=== PATIENT | male | born 1960 | race Caucasian/White ===

== ENCOUNTER 2021-08-03 16:03 | Emergency (ER) | payer SELFPAY ==
[~2021-08-03] VITALS: Ht 182.9 cm; Wt 113.0 kg
[2021-08-03 17:01] LABS: HEMATOCRIT 43.4 % (39.0-50.0); HEMOGLOBIN 14.1 g/dl (14.0-18.0); IMMATURE GRANULOCYTES 0.1 % (0.0-5.0); MEAN CELL VOLUME 92.3 fL CALC (80.0-100.0); MEAN CORPUSCULAR HGB CONC 32.5 g/dL CAL (32.0-36.0); NEUT# 5.32 thou/uL (1.82-7.42); RED BLOOD COUNT 4.7 mill/uL (4.70-6.10); RED CELL DISTRI WIDTH 13.1 % (11.5-15.5)
[2021-08-03 17:12] LABS: ALBUMIN 4.1 g/dL (3.2-5.0); ALKALINE PHOSPHATASE 127 u/l (38-126); AMYLASE 115 u/l (30-110); ANION GAP 13 (6-22 (CALC)); BILIRUBIN, TOTAL 0.6 mg/dL (0.0-1.4); BUN 18 mg/dL (9-20); BUN/CREATININE RATIO 16 (12-20 (CALC)); CARBON DIOXIDE 25 mmol/l (22-30); CHLORIDE 106 mmol/l (95-108); CREATININE 1.1 mg/dL (0.7-1.3); GFR > 60 ML/MIN (>=60 (CALC)); GFR FOR AFR.AMER. > 60 ML/MIN (>=60 (CALC)); LIPASE 770 u/l (23-300); POTASSIUM 4.3 mmol/l (3.5-5.1); SGOT/AST 33 u/l (17-59); SODIUM 141 mmol/l (137-146)
[2021-08-03 17:24] LABS: MYOGLOBIN 110 ng/mL (0 - 121)
[2021-08-03 19:19] LABS: URINE BILIRUBIN - DIPSTICK NEGATIVE (NEGATIVE); URINE BLOOD DIPSTICK NEGATIVE (NEGATIVE); URINE COLOR YELLOW; URINE GLUCOSE - DIPSTICK 500 mg/dL (NEGATIVE); URINE KETONE NEGATIVE (NEGATIVE); URINE LEUK ESTERASE NEGATIVE (NEGATIVE); URINE PH 5.5 (4.5-8.0); URINE PROTEIN - DIPSTICK 100 mg/dL (NEG-TRACE); URINE SPECIFIC GRAVITY >=1.030; URINE UROBILINOGEN - DIPSTICK 0.2 E.U./dL (0.2)
[2021-08-03 19:20] LABS: URINE NITRITE - DIPSTICK NEGATIVE (Negative)
[2021-08-03 19:25] LABS: URINE RBC 0-2 RBC/hpf (0-5)
[2021-08-03 19:26] LABS: URINE SQUAMOUS EPITHELIAL CELL MODERATE EPI/hpf (0-FEW)
[2021-08-03] MEDS ORDERED: CLONIDINE0.1 MG PO (21:20)
[2021-08-03] MEDS ORDERED: METOPROL TAR25 MG PO (21:20)
[2021-08-03] MEDS ORDERED: ZESTRIL10 M1 PO (21:21)
[2021-08-03] MEDS ORDERED: AFEDITAB30 MG PO (21:21)
[2021-08-03] MEDS ORDERED: METFORMIN HCL1000 MG PO (21:22)
[2021-08-03 21:23] VITALS: BP 126/73
== END 2021-08-03 21:23 | disposition short-term general hospital (02) | DRG 194 ==
LOC: ED 16:03 → ED-I 20:30 → ED 21:23
PROVIDERS: Emergency Medicine
DX: J18.9 Pneumonia, unspecified organism (principal); J91.8 Pleural effusion in other conditions classified elsewhere; R74.8 Abnormal levels of other serum enzymes; R09.02 Hypoxemia; R16.0 Hepatomegaly, not elsewhere classified; I10 Essential (primary) hypertension; Z20.822 Contact with and (suspected) exposure to COVID-19
CPT/HCPCS: Q9967

== ENCOUNTER 2021-08-17 08:20 | Inpatient (IN) | payer OTHER ==
[~2021-08-17] VITALS: Ht 182.9 cm; Wt 96.0 kg
[~2021-08-17 08:20] MED LIST: AFEDITAB30 MG PO; CLONIDINE0.1 MG PO; METFORMIN HCL1000 MG PO; METOPROL TAR25 MG PO; ZESTRIL10 M1 PO
--- NOTE | 2021-08-17 08:23 | NUR ---
PT TO ROOM 10 VIA WC ABLE TO STAND AND TRANSFER SELF WITHOUT ASSIST.
[2021-08-17 09:11] LABS: HEMATOCRIT 41.2 % (39.0-50.0); HEMOGLOBIN 13.2 g/dl (14.0-18.0); MEAN CELL VOLUME 93.6 fL CALC (80.0-100.0); NEUT# 2.69 thou/uL (1.82-7.42); RED BLOOD COUNT 4.4 mill/uL (4.70-6.10); RED CELL DISTRI WIDTH 13.3 % (11.5-15.5)
[2021-08-17 09:19] LABS: D-DIMER 1.11 mg/L (0.19-0.60)
[2021-08-17 09:20] LABS: ALKALINE PHOSPHATASE 144 u/l (38-126); ANION GAP 14 (6-22 (CALC)); BILIRUBIN, TOTAL 0.6 mg/dL (0.0-1.4); BUN 24 mg/dL (9-20); BUN/CREATININE RATIO 17 (12-20 (CALC)); CARBON DIOXIDE 22 mmol/l (22-30); CHLORIDE 104 mmol/l (95-108); CREATININE 1.4 mg/dL (0.7-1.3); GFR 52 ML/MIN (>=60 (CALC)); GFR FOR AFR.AMER. > 60 ML/MIN (>=60 (CALC)); LIPASE 446 u/l (23-300); POTASSIUM 4.8 mmol/l (3.5-5.1); SODIUM 135 mmol/l (137-146); TOTAL PROTEIN 7.7 g/dL (6.3-8.2)
[2021-08-17 09:23] LABS: ACT PARTIAL THROMBO TIME 25.9 SECONDS (20.0-32.5); INTERNATIONAL NORMALIZED RATIO 1.1 RATIO (0.7-1.3)
[2021-08-17 09:28] LABS: SGOT/AST 68 u/l (17-59)
--- NOTE | 2021-08-17 11:14 | NUR ---
MD AT BEDSIDE TO DISCUSS RESULTS AND POC
--- NOTE | 2021-08-17 11:22 | NUR ---
DR SALINAS AT BEDSIDE TO DISCUSS POC
--- NOTE | 2021-08-17 12:37 | NUR ---
REPORT CALLED TO DONAVON LINARES.
--- NOTE | 2021-08-17 12:55 | NUR ---
TO MED SURG VIA WHEELCHAIR, TELE MONITOR IN PLACE.
--- NOTE | 2021-08-17 12:56 | NUR ---
PT ARRIVED TO [facility] ROOM 262 VIA PORTABLE. PT IS A/O X3. ASSESSMENT AND VITALS COMPLETED. RESPIRAITONS ARE EVEN AND UNLABORED, 98% ON 2L NC. NONPRODUCTIVE COUGH NOTED. LUNG SOUNDS ARE CLEAR. HEART RHYTHM NORMAL WITH TELE IN PLACE ([id number]), SR PER ER MONITORING. LIFE VEST NOTED. BOWEL SOUNDS ACTIVE, LBM 08/17/21. PULSE STRONG. #20G RAC FLUSHED, SITE APPEARS HEALTHY AND PATENT. SCAB AREA NOTED TO LEFT DUCKWORTH, PT STATES FROM PREVIOUS SURGERY.PT STATES HE WAS PREVIOUS SENT TO [facility] FOR LIFE VEST, PNM, AND CHF. PT INFORMS WRITTER HE HAS DC ABOUT A WEEK AGO. PT DENIES OF ANY PAINS OR DISCOMFORTS. NKDA NOTED, ALLERGY BAND AND FALL RISK BAND APPLIED. PT ORIENTED TO ROOM AND CALL SYSTEM. ALL SAFTEY PRECAUTIONS ARE IN PLACE WITH CALL LIGHT IN REACH.AIR/CONTACT PRECAUTIONS. WILL CONTINUE TO MONITOR
[2021-08-17 13:18] VITALS: BP 101/71
[2021-08-17 14:00] VITALS: BP 109/79
--- NOTE | 2021-08-17 14:00 | NUR ---
ROOM SERVICE CLERK INFORMED OF 2 BEAT OF VTACH. PT RESTING IN SEMI FOWLERS POSITION TALKING ON PHONE. VITALS OBTAINED. BP 109/79, HR 78, O2 98% ON 2L NC. PT DENIES OF ANY DISTRESSES. DR SALINAS INFORMED.
--- NOTE | 2021-08-17 16:00 | NUR ---
PT RESTNG IN SEMI FOWLERS POSITION. RESPIRATIONS ARE EVEN AND UNLABORED ON 2L NC. TELE MONITORING IN PLACE WITH LIFE VEST. #20G RAC REMAINS IN PLACE. PT DENIES OF ANY PAINS OR DISCOMFORTS AT THIS TIME.ALL SAFTEY PRECAUTIONS ARE IN PLACE WITH CALL LIGHT IN REACH. AIR/CONTACT PRECAUTIONS. WILL CONTINUE TO MONITOR.
[2021-08-17 19:00] VITALS: BP 117/66
--- NOTE | 2021-08-17 22:34 | NUR ---
PHYSICAL ASSESMENT COMPLETE. PT CURRENTLY DENIES PAIN BUT STATES HE HAS DIFICULTY BREATHING. ALBUTEROL REQUESED FROM THE PHYSICIAN. SCHEDULED MEDICATIONS AND PRN MEDICATION ADMINISTERED, SEE E-MAR. PT DENIES ANY NEEDS AT THIS TIME. PLAN OF CARE REVIEWED, PT DENIES QUESTIONS, VERBALIZES UNDERSTANDING. ITEMS WITHIN REACH, BED LOCKED IN LOW POSITION W/ BEDRAILS UP X2. CALL KUMAR WITHIN REACH, AGREES TO CALL PRN.
[2021-08-18] VITALS: BP 115/75
--- NOTE | 2021-08-18 | NUR ---
PT LAYING IN BED WITH EYES CLOSED, APPEARS TO BE SLEEPING, APPEARS COMFORTABLE AND IN NO DISTRESS. RESPIRATIONS REGULAR AND UNLABORED. ITEMS REMAIN WITHIN REACH, CALL KUMAR REMAINS WITHIN REACH. BED REMAINS LOCKED AND IN LOW POSITION WITH BEDRAILS UP X2. WILL CONTINUE TO MONITOR.
[2021-08-18 04:00] VITALS: BP 127/86
--- NOTE | 2021-08-18 04:08 | NUR ---
PT RESTING IN BED, NO SIGNS OF DISTRESS NOTED, RESP EVEN AND UNLABORED. PT VOICES NO NEEDS OR COMPLAINTS AT THIS TIME. CALL LIGHT IN REACH, CONTINUE TO MONITOR.
[2021-08-18 05:31] LABS: HEMATOCRIT 43.9 % (39.0-50.0); HEMOGLOBIN 13.8 g/dl (14.0-18.0); IMMATURE GRANULOCYTES 0.2 % (0.0-5.0); MEAN CELL VOLUME 93.8 fL CALC (80.0-100.0); MEAN CORPUSCULAR HGB 29.5 pG CALC (26.0-32.0); MEAN CORPUSCULAR HGB CONC 31.4 g/dL CAL (32.0-36.0); NEUT# 2.27 thou/uL (1.82-7.42); RED BLOOD COUNT 4.68 mill/uL (4.70-6.10); RED CELL DISTRI WIDTH 13.3 % (11.5-15.5)
[2021-08-18 06:04] LABS: ALBUMIN 3.7 g/dL (3.2-5.0); ALKALINE PHOSPHATASE 145 u/l (38-126); ANION GAP 13 (6-22 (CALC)); BILIRUBIN, TOTAL 0.4 mg/dL (0.0-1.4); BUN 26 mg/dL (9-20); BUN/CREATININE RATIO 19 (12-20 (CALC)); C-REACTIVE PROTEIN 0.7 mg/dL (0-0.9); CARBON DIOXIDE 25 mmol/l (22-30); CHLORIDE 106 mmol/l (95-108); CREATININE 1.3 mg/dL (0.7-1.3); GFR 56 ML/MIN (>=60 (CALC)); GFR FOR AFR.AMER. > 60 ML/MIN (>=60 (CALC)); POTASSIUM 4.4 mmol/l (3.5-5.1); SGOT/AST 64 u/l (17-59); SODIUM 140 mmol/l (137-146); TOTAL PROTEIN 7.1 g/dL (6.3-8.2)
[2021-08-18 07:38] VITALS: BP 138/95
--- NOTE | 2021-08-18 08:00 | NUR ---
SHIFT CHANGE REPORT, PT AWAKE ALERT AND ORIENTED RESTING IN BED IN SEMI-FOWLERS POSITION. O2 @ 2L VIA NC IN PLACE, TELE MONITOR IN PLACE, EXTERNAL DEFIBRILATOR IN PLACE, ALL NEEDS ADDRESSED, CALL KUMAR IN REACH AND BED LOCKED IN LOWEST POSITION.
[2021-08-18 10:45] VITALS: BP 123/84
--- NOTE | 2021-08-18 11:58 | NUR ---
RESTING IN BED, DRY COUGH SUBSIDING, INFORMED OF NEW ORDERS AND STATED UNDERSTANDING.
[2021-08-18] MEDS ORDERED: ZESTRIL5 M1 PO (12:58)
[2021-08-18] MEDS ORDERED: CARVEDILOL25 MG PO (12:58)
[2021-08-18] MEDS ORDERED: LASIX20 MG PO (12:58)
[2021-08-18] MEDS ORDERED: HUMULIN 70/30 SC (13:00)
[2021-08-18 15:00] VITALS: BP 127/77
[2021-08-18 19:00] VITALS: BP 134/67
--- NOTE | 2021-08-18 19:35 | NUR ---
PHYSICAL ASSESMENT COMPLETE. PT CURRENTLY DENIES PAIN OR DISCOMFORT. SCHEDULED MEDICATIONS AND PRN MEDICATION ADMINISTERED, SEE E-MAR. PT DENIES ANY NEEDS AT THIS TIME. PLAN OF CARE REVIEWED, PT DENIES QUESTIONS, VERBALIZES UNDERSTANDING. ITEMS WITHIN REACH, BED LOCKED IN LOW POSITION W/ BEDRAILS UP X2. CALL KUMAR WITHIN REACH, AGREES TO CALL PRN.
[2021-08-19] VITALS: BP 143/88
[2021-08-19 04:00] VITALS: BP 140/91
[2021-08-19 05:43] LABS: HEMOGLOBIN 13.5 g/dl (14.0-18.0); MEAN CELL VOLUME 90.9 fL CALC (80.0-100.0); MEAN CORPUSCULAR HGB 29.2 pG CALC (26.0-32.0); MEAN CORPUSCULAR HGB CONC 32.1 g/dL CAL (32.0-36.0); RED BLOOD COUNT 4.62 mill/uL (4.70-6.10); RED CELL DISTRI WIDTH 13.3 % (11.5-15.5)
[2021-08-19 06:06] LABS: ALBUMIN 3.2 g/dL (3.2-5.0); ALKALINE PHOSPHATASE 139 u/l (38-126); ANION GAP 11 (6-22 (CALC)); BILIRUBIN, TOTAL 0.5 mg/dL (0.0-1.4); BUN 27 mg/dL (9-20); BUN/CREATININE RATIO 22 (12-20 (CALC)); C-REACTIVE PROTEIN 0.7 mg/dL (0-0.9); CARBON DIOXIDE 24 mmol/l (22-30); CHLORIDE 107 mmol/l (95-108); CREATININE 1.2 mg/dL (0.7-1.3); GFR > 60 ML/MIN (>=60 (CALC)); GFR FOR AFR.AMER. > 60 ML/MIN (>=60 (CALC)); MAGNESIUM 1.8 mg/dL (1.6-2.3); POTASSIUM 4.6 mmol/l (3.5-5.1); SGOT/AST 30 u/l (17-59); SODIUM 138 mmol/l (137-146); TOTAL PROTEIN 6.4 g/dL (6.3-8.2)
--- NOTE | 2021-08-19 06:50 | NUR ---
MONITER TECH CALLED AND REPORTED A 10 BEAT RUN OF V-TACH. PT WAS ASYMTOMTIC. VITALS CHECKED AND WITHIN NORMAL LIMITS. WILL CONTINUE TO MONITOR.
--- NOTE | 2021-08-19 07:27 | NUR ---
PT SITTING IN BED. A&O X3. NO DISTRESS NOTED. O2 VIA NC @2L IN PLACE. CLEAR/DIMINISHED BREATH SOUNDS UPON AUSCULTATION. ACTIVE BOWEL SOUNDS X4 QUADRANTS. #20GRAC HEALTHY AND PATENT. FERMENTATION SCIENTIST IN PLACE. LIFE VEST IN PLACE. ROUTE SALES MANAGER COUGH NOTED. PT COVERED WITH INSULIN PER SLIDING SCALE. PT ENCOURAGED TO GET OOB INTO CHAIR; PT AGREEABLE TO PLAN. ASSESSMENT COMPLETED. DISCUSSED POC. ISOLATION PRECAUTIONS IN PLACE PT EDUCATED ON THESE. CALL LIGHT WITHIN REACH.
[2021-08-19 08:00] VITALS: BP 139/96
--- NOTE | 2021-08-19 10:00 | NUR ---
new iv initiated x2 attempts. #20G LFA. HEALTHY AND PATENT WITH GOOD BLOOD RETURN. AZITHROMYCIN REINITIATED. #20G RAC REMOVED; INTACT UPON REMOVAL. CALL LIGHT LANGHTIN GERA.
[2021-08-19 11:10] VITALS: BP 124/86
--- NOTE | 2021-08-19 11:35 | NUR ---
PT SITTING UP IN THE CHAIR. O2 REMAINS UNCHANGED. TOLERATING WELL. NO OTHER NEEDS REPORTED AT THIS TIME. CALL LIGHT WITHIN REACH.
--- NOTE | 2021-08-19 11:42 | NUR ---
S- pt voiced no complaints. 0- Pt seen for treatment this am. He was resting in bed. Pt rolled side to side indep, sat over edge of bed with SBA. Gait without assist device 1 x 30', 1x45' with SBA only with IV pole. Pt performed standing balance activities, including up on toes, mini squats x 10 reps. Standing with feet together eyes close 30 sec, SLS approx 5 sec only on either leg. BP 124/84-127/84-119/74, HR 94-97, 02 sats 99-100% Pt encourage to do ex and walk. Pt left sitting in recliner with callbell and bedside tray in reach. Time spent with pt 35 min. A- Pt tolerated activity well. [place] [id number] home with home health P- will follow per POC.
--- NOTE | 2021-08-19 13:56 | NUR ---
PT SITTING IN THE CHAIR. LASIX ADMINISTERED IVP. REMDESIVIR INITIATED AT THIS TIME. O2 REMAINS UNCHANGED. NO NEEDS AT THIS TIME. CALL LIGHT WITHIN REACH.
[2021-08-19 15:49] VITALS: BP 139/85
[2021-08-19 19:00] VITALS: BP 149/78
[2021-08-20] VITALS: BP 143/73
[2021-08-20 04:00] VITALS: BP 146/88
[2021-08-20 06:36] LABS: HEMATOCRIT 40.4 % (39.0-50.0); HEMOGLOBIN 13.7 g/dl (14.0-18.0); MEAN CORPUSCULAR HGB 29.8 pG CALC (26.0-32.0); MEAN CORPUSCULAR HGB CONC 33.9 g/dL CAL (32.0-36.0); NEUT# 3.25 thou/uL (1.82-7.42); RED BLOOD COUNT 4.59 mill/uL (4.70-6.10); RED CELL DISTRI WIDTH 13.1 % (11.5-15.5)
[2021-08-20 06:59] LABS: ALBUMIN 3.5 g/dL (3.2-5.0); ALKALINE PHOSPHATASE 144 u/l (38-126); ANION GAP 15 (6-22 (CALC)); BILIRUBIN, TOTAL 0.6 mg/dL (0.0-1.4); BUN 29 mg/dL (9-20); BUN/CREATININE RATIO 25 (12-20 (CALC)); CARBON DIOXIDE 24 mmol/l (22-30); CHLORIDE 103 mmol/l (95-108); CREATININE 1.2 mg/dL (0.7-1.3); GFR > 60 ML/MIN (>=60 (CALC)); GFR FOR AFR.AMER. > 60 ML/MIN (>=60 (CALC)); POTASSIUM 4.1 mmol/l (3.5-5.1); SGOT/AST 24 u/l (17-59); SODIUM 138 mmol/l (137-146); TOTAL PROTEIN 6.6 g/dL (6.3-8.2)
[2021-08-20 07:42] VITALS: BP 134/77
--- NOTE | 2021-08-20 07:42 | NUR ---
PT SLEEPING IN BED. AWAKENED TO COMPLETE ASSESSMENT. A&O X3. NO DISTRESS NOTED. O2 VIA NC @2L IN PLACE. CLEAR/DIMINISHED BREATH SOUNDS UPON AUSCULTATION. ACTIVE BOWEL SOUNDS X4 QUADRANTS. IV HEALTHY AND PATENT. INDUSTRIAL SAFETY AND HEALTH SPECIALIST IN PLACE. ASSESSMENT COMPLETED. DISCUSSED POC. CALL LIGHT LAZ OBSS.
[2021-08-20 10:45] VITALS: BP 130/85
--- NOTE | 2021-08-20 10:59 | NUR ---
PT AMBULATING ROOM WITH PHYSICAL THERAPY AT SIDE; STEADY GAIT OBSERVED. PT CURRENTLY VIA RA SUSTAINING 97-99%. PT DENIES ANY CURRENT SOB. IV FLUSHED AND ROCEPHIN INITIATED AT THIS TIME. PT COVERED WTIH INSULIN PER SLIDING SCALE. NO NEEDS AT THIS TIME. CALL LIGHT WITHIN REACH.
--- NOTE | 2021-08-20 11:59 | NUR ---
S- Are we dancing today. Pt was without complaints. 0- Pt resting in bed on phone. He moved independently for supine to sit. Dynamic sitting balance was good. Pt ambulated in room approx 6 min without 02 (nursing present and request) 02sats 97-99 while ambulating. BP 127/84 to 136/85, HR 94 - 103. Supervision only given during ambulation. Pt left in recliner will [address], callbell and tray in reach. Time spent with pt 30 min. 0- [facility] 20 home P- Will follow.
[2021-08-20 15:00] VITALS: BP 117/72
--- NOTE | 2021-08-20 17:53 | NUR ---
PT SITTING IN BED TALKING ON THE PHONE; NO DISTRESS NOTED. NO NEEDS AT [facility]. COVERED WITH INSULIN PER SLIDING SCALE. CALL LIGHT WITHIN REACH.
[2021-08-20 19:00] VITALS: BP 135/74
[2021-08-21] VITALS: BP 138/77
[2021-08-21 04:00] VITALS: BP 93/56
[2021-08-21 06:07] LABS: HEMATOCRIT 41.8 % (39.0-50.0); HEMOGLOBIN 13.6 g/dl (14.0-18.0); IMMATURE GRANULOCYTES 0.3 % (0.0-5.0); MEAN CELL VOLUME 89.3 fL CALC (80.0-100.0); MEAN CORPUSCULAR HGB 29.1 pG CALC (26.0-32.0); MEAN CORPUSCULAR HGB CONC 32.5 g/dL CAL (32.0-36.0); NEUT# 3.58 thou/uL (1.82-7.42); RED BLOOD COUNT 4.68 mill/uL (4.70-6.10); RED CELL DISTRI WIDTH 13.2 % (11.5-15.5)
[2021-08-21 06:34] LABS: ALBUMIN 3.4 g/dL (3.2-5.0); ALKALINE PHOSPHATASE 125 u/l (38-126); ANION GAP 13 (6-22 (CALC)); BILIRUBIN, TOTAL 0.7 mg/dL (0.0-1.4); BUN 31 mg/dL (9-20); BUN/CREATININE RATIO 27 (12-20 (CALC)); C-REACTIVE PROTEIN 0.5 mg/dL (0-0.9); CARBON DIOXIDE 27 mmol/l (22-30); CHLORIDE 101 mmol/l (95-108); CREATININE 1.2 mg/dL (0.7-1.3); GFR > 60 ML/MIN (>=60 (CALC)); GFR FOR AFR.AMER. > 60 ML/MIN (>=60 (CALC)); SGOT/AST 19 u/l (17-59); SODIUM 137 mmol/l (137-146); TOTAL PROTEIN 6.6 g/dL (6.3-8.2)
--- NOTE | 2021-08-21 07:30 | NUR ---
AM ASSESSMENT COMPLETED WITH Sherrie GILLIS RN. WILL CONTINUE TO MONITOR
[2021-08-21 11:04] VITALS: BP 129/69
--- NOTE | 2021-08-21 11:30 | NUR ---
S- pt stated he was going home today. 0- Pt sitting up on bed using phone. He moved in room independently. Gait 2x 75' in room without difficulty and 02 sats 99%. HR in 60's. 0- [facility] 20 home. P- Per POC
[2021-08-21] MEDS ORDERED: LASIX 40 MG TAB40 MG PO (13:19)
[2021-08-21] MEDS ORDERED: DEXAMETHASON6 MG PO (13:22)
[2021-08-21] MEDS ORDERED: ZITHROMAX250 MG PO (13:22)
[2021-08-21] MEDS ORDERED: ASPIRIN REGULA325 M1 PO (13:23)
--- NOTE | 2021-08-21 14:15 | NUR ---
Discharge instructions given. Patient verbalizes understanding of same. Discharged in stable condition via Wheelchair to Home with staff. All belongings sent with pt.
== END 2021-08-21 14:15 | disposition home or self-care (01) | DRG 177 ==
LOC: ED 08:20 → MS2 11:29 → ED 11:33 → ED-I 11:33 → MS2 08-19 20:59
PROVIDERS: Nurse Practitioner; ADMIT Hospitalist; ATTEND Hospitalist
PROC: XW033E5 Introduction of Remdesivir Anti-infective into Peripheral Vein, Percutaneous Approach, New Technology Group 5 (ICD-10-PCS; principal; 2021-08-17)
DX: U07.1 COVID-19 (principal); J12.82 Pneumonia due to coronavirus disease 2019; N17.9 Acute kidney failure, unspecified; E87.2 Acidosis; R09.02 Hypoxemia; E86.0 Dehydration; I11.0 Hypertensive heart disease with heart failure; I50.9 Heart failure, unspecified; E11.9 Type 2 diabetes mellitus without complications; R74.01 Elevation of levels of liver transaminase levels; Z79.84 Long term (current) use of oral hypoglycemic drugs
CPT/HCPCS: Q9967